=== PATIENT | female | born 1980 | race Caucasian/White ===

== ENCOUNTER → 2017-03-08 | Outpatient (CLI) | payer OTHER ==
[~2017-03-08] MED LIST: APAP325 MG PO; BENTYL10 M1 PO; CLARINEX-D1 TAB.SR . PO; FLEXERIL10 MG PO; MONTELUKAST SOD10 MG PO; VITAMIN D 22000 UNIT PO; ZOFRAN ODT4 MG PO; ZOLOFT50 MG PO
--- NOTE | ~2017-03-08 | XA231 ---
[facility] A Service of [facility] & [facility] / [facility] RADIOLOGY TEXT RESULTS PATIENT: KEMAL STEINER LOCATION: CIVR : [birth year] UNIT #: [id number] AGE: [address]: Joan Estrella MD SEX: F ORDER DR: [id number] [place] [id number] [facility]. [place], [place] [address] [id number] O MR#: [id number] Acc #: [id number] NAME: KEMAL STEINER : 1980 SEX: F STUDY DATE/TIME: 03/08/2017 13:23 UNIT: [facility] ROOM: STUDY DESCRIPTION: XA Consult Attending Physician: Joan Estrella M.D., Ph.D. Referring Physician: Joan Estrella M.D., Ph.D. Ordering Physician: Joan Estrella M.D., Ph.D. Primary Care Physician: No Primary Care Physician MEDICAL IMAGING REPORT This report is preliminary unless electronic signature is present EXAM Medi-Port check INDICATION Ms. Steiner is a 36-year woman with a history of lymphoma. She has a right subclavian Medi-Port which apparently has not been functioning properly. She was referred for Medi-Port check. PROCEDURE Patient was placed on the angiography table and initial mask design engineer image was obtained. This showed that the patient's right subclavian Medi-Port catheter extends up into the right internal jugular vein. This will require an attempted snare of the catheter from below to reposition it within the superior vena cava. This was discussed with the patient. She will be rescheduled for attempted sparing of the catheter via a right common femoral approach. Total fluoroscopy time was 0.1 minutes. Single fluoroscopic image was obtained. IMPRESSION This patient's right subclavian Medi-Port extends up into the right internal jugular vein. As such it should not be used. This was discussed with the patient, and we will plan on rescheduling her to return to the department for an attempted sparing of the catheter via a right common femoral approach. Dictated by... Sanjuanita F. Abel, M.D. THIS IS AN ELECTRONICALLY VERIFIED REPORT Sanjuanita Abel M.D. at 03/11/2017 5:21 PM AFF/jf TD: 03/11/2017 15:34 [facility]. [facility] A Service of [facility] & [facility] / [facility] RADIOLOGY TEXT RESULTS PATIENT: KEMAL STEINER LOCATION: [facility] #: [id number] : [birth year] UNIT #: [id number] AGE: [address]: Joan Estrella MD SEX: F ORDER DR: JOB #: [id number] MEDICAL IMAGING REPORT Page 1 of 1 COPY
== END | disposition home or self-care (01) ==
LOC: CIVR 11:30
DX: T82.9XXA Unspecified complication of cardiac and vascular prosthetic device, implant and graft, initial encounter (principal); C85.80 Other specified types of non-Hodgkin lymphoma, unspecified site; C82.48 Follicular lymphoma grade IIIb, lymph nodes of multiple sites
CPT/HCPCS: 76000; 76140; 77002; Q9967

== ENCOUNTER → 2017-03-20 | Outpatient (CLI) | payer OTHER ==
--- NOTE | ~2017-03-20 | XA88 ---
[facility] A Service of [facility] & [facility] RADIOLOGY TEXT RESULTS PATIENT: KEMAL STEINER LOCATION: CIVR : 80 UNIT #: [id number] AGE: [address]: Joan Estrella MD SEX: F ORDER DR: [id number] [facility] [address] [place], [place] [address] [id number] O MR#: [id number] Acc #: [id number] NAME: KEMAL STEINER : 1980 SEX: F STUDY DATE/TIME: 03/20/2017 9:16 UNIT: CIVR ROOM: STUDY DESCRIPTION: XA CVC Reposition Attending Physician: Joan Estrella M.D., Ph.D. Referring Physician: Joan Estrella M.D., Ph.D. Ordering Physician: Joan Estrella M.D., Ph.D. Primary Care Physician: Cynthia Wagoner A.P.R.N. MEDICAL IMAGING REPORT This report is preliminary unless electronic signature is present EXAM Port-A-Cath repositioning, 03/20/2017 HISTORY Chronic indwelling right subclavian Ufxyqm-A-Qrzx catheter. The catheter has become displaced from the right internal jugular vein. Blood return can no longer be obtained from the catheter and attempts to flush it have met with resistance. PROCEDURE Informed consent was obtained from the patient. Fentanyl and Versed were administered for IV conscious sedation, total sedation time 45 minutes. Full standard sterile technique was utilized throughout the procedure including sterile preparation, barrier draping, caps and masks as well as sterile gowns and gloves. The right common femoral vein was accessed via standard Seldinger technique. The micropuncture needle was inserted and the tract dilated over a series of guidewires and eventually a 7-[place] sheath inserted. A succession of devices was utilized ultimately including an angled tip Glidewire and a 4-[place] loop snare. After considerable manipulation, the guidewire was passed around the mid portion of the catheter which was then snared with the loop snare and pulled down into the superior vena cava. Total fluoroscopy time 22.8 minutes. Four spot images obtained as well as one angiographic run. Following catheter tip satisfactory reposition in the superior vena cava, under standard sterile technique, the catheter was accessed and contrast injected to confirm patency and lack of damage. Normal injection confirmed an intact and normally functioning catheter without a persistent fibrin sheath. Catheter was then flushed and packed with a heparin solution as per protocol then the hub was deaccesed. [facility] A Service of [facility] / [facility] RADIOLOGY TEXT RESULTS PATIENT: KEMAL STEINER LOCATION: CIVR : 80 UNIT #: [id number] AGE: [address]: Joan Estrella MD SEX: F ORDER DR: Catheter and sheath removed from the right groin, and hemostasis achieved with manual compression and bedrest. IMPRESSION 1. Successful repositioning of a right subclavian Mawzhb-J-Njjd catheter. Catheter was extracted from the internal jugular vein were it appeared to be heavily bound with a fibrin sheath and/or endothelialization, and repositioned in the superior vena cava with traction. 2. Post repositioning injection confirmed a patent undamaged device in appropriate position which was then flushed with saline and packed with heparin. 3. No immediate complication. Dictated by... Saurav David M.D. THIS IS AN ELECTRONICALLY VERIFIED REPORT Saurav David M.D. at 03/21/2017 5:04 PM ANGELIQUE/corine TD: 03/21/2017 10:16 JOB #: [id number] MEDICAL IMAGING REPORT Page 1 of 1 COPY
[2017-03-20 07:49] LABS: PARTIAL THROMBOPLASTIN TIME 24.9 SECONDS (23.5-31.3); PROTHROMBIN TIME (PATIENT) 10.8 SECONDS (10.0-11.7)
[2017-03-20 07:53] LABS: HEMATOCRIT 44.4 % (35.0-45.0); HEMOGLOBIN 14.6 gm/dL (12.0-16.0); MEAN CELL VOLUME 91.2 FL (83-96); MEAN CORPUSCULAR HEMOGLOBIN 29.9 PG (28-34); MEAN CORPUSCULAR HGB CONC 32.8 g/dL (30-36); MEAN PLATELET VOLUME 7.4 FL (6.5-11.5); RED BLOOD COUNT 4.87 X10e (3.90-5.30); RED CELL DISTRIBUTION WIDTH 15.5 % (11.0-15.5); WHITE BLOOD COUNT 7.3 X10e3 (4.0-10.5)
== END | disposition home or self-care (01) ==
LOC: CIVR 07:04
PROVIDERS: Internal Medicine Hematology & Oncology
DX: Z45.2 Encounter for adjustment and management of vascular access device (principal); C82.48 Follicular lymphoma grade IIIb, lymph nodes of multiple sites
CPT/HCPCS: 36415; 76000; 77001; 85027; 85610; 85730; C1725; C1894; J1642; J2250; J3010; Q9967